=== PATIENT | male | born 2000 | race Caucasian/White ===

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

== ENCOUNTER 2022-10-23 10:46 | Emergency (ER) | payer MEDICAID, OTHER ==
[~2022-10-23] VITALS: Ht 167.6 cm; Wt 68.0 kg
[2022-10-23 11:10] VITALS: O2SAT 99
[2022-10-23] MEDS ORDERED: IBUP-2029 MT (13:08)
[2022-10-23] MEDS ORDERED: IBUPROFEN 600MG TABLET PO ONE (13:15)
[2022-10-23 14:03] VITALS: BP 111/76; PULSE 60; RESP 18; TEMP 98.2
== END 2022-10-23 14:05 | disposition home or self-care (01) ==
LOC: ER 11:46
DX: S43.402A Unspecified sprain of left shoulder joint, initial encounter (principal); X58.XXXA Exposure to other specified factors, initial encounter; Y93.9 Activity, unspecified; Y92.89 Other specified places as the place of occurrence of the external cause; Y99.8 Other external cause status
CPT/HCPCS: 73030; 99283